=== PATIENT | female | born 1985 | race Caucasian/White ===

== ENCOUNTER 2020-07-12 10:03 | Emergency (ER) | payer MEDICAID, OTHER ==
[~2020-07-12] VITALS: Ht 175.3 cm; Wt 97.3 kg
[2020-07-12 10:17] VITALS: BP 121/66
[2020-07-12] MEDS ORDERED: CEPHALEXIN MONOHYDRATE 500 MG CAPSULE PO ONE (10:30)
== END 2020-07-12 12:03 | disposition home or self-care (01) ==
LOC: EMS 10:24
DX: N39.0 Urinary tract infection, site not specified (principal); F31.9 Bipolar disorder, unspecified; F41.9 Anxiety disorder, unspecified; Z91.010 Allergy to peanuts; Z88.8 Allergy status to other drugs, medicaments and biological substances
CPT/HCPCS: 99283

== ENCOUNTER 2020-07-23 11:35 | Emergency (ER) | payer OTHER | END 2020-07-23 13:26 | disposition home or self-care (01) | LOC: EMS 11:37 | DX: R45.851 Suicidal ideations (principal); Z53.21 Procedure and treatment not carried out due to patient leaving prior to being seen by health care provider ==

== ENCOUNTER 2020-08-18 03:51 | Emergency (ER) | payer OTHER ==
[~2020-08-18] VITALS: Ht 175.3 cm; Wt 92.7 kg
[2020-08-18] MEDS ORDERED: FLUO40CA PO (04:19)
[2020-08-18] MEDS ORDERED: PRAZ2 PO (04:19)
[2020-08-18] MEDS ORDERED: CHOL200074 PO (04:19)
[2020-08-18] MEDS ORDERED: METO25 PO (04:19)
[2020-08-18] MEDS ORDERED: BUSP10TA23 PO (04:19)
[2020-08-18] MEDS ORDERED: TOPI50TA24 PO (04:19)
[2020-08-18] MEDS ORDERED: DIPH-1080 PO (04:19)
[2020-08-18] MEDS ORDERED: VALB40CA2 PO (04:19)
[2020-08-18] MEDS ORDERED: LORazepam 2 MG/ML VIAL IM ONE (04:30)
[2020-08-18] MEDS ORDERED: HALOPERIDOL LACTATE 5 MG/ML VIAL IM ONE (04:30)
[2020-08-18 04:44] LABS: BASOPHILS % (AUTO) 0.7 % (0.0-2.0); EOSINOPHILS % (AUTO) 0.3 % (1.0-6.0); HEMATOCRIT 37.9 % (36-46); HEMOGLOBIN 12.4 g/dL (12.0-16.0); LYMPHOCYTES # (AUTO) 2.3 K/uL (1.0-4.8); LYMPHOCYTES % (AUTO) 16.1 % (22.0-44.0); MEAN CORPUSCULAR HEMOGLOBIN 30.2 pg (26.0-34.0); MEAN CORPUSCULAR HGB CONC 32.8 G/dL (31.0-37.0); MEAN CORPUSCULAR VOLUME 92 fL (80-100); MONOCYTES # (AUTO) 1.2 K/uL (0.1-1.0); MONOCYTES % (AUTO) 8.7 % (2.0-9.0); NEUTROPHILS # (AUTO) 10.4 K/uL (1.8-7.7); NEUTROPHILS % (AUTO) 74.2 % (40.0-70.0); PLATELET COUNT (AUTO) 359 K/uL (150-450); RED BLOOD CELL COUNT(AUTO) 4.12 MIL/uL (4.00-5.20); RED CELL DISTRIBUTION WIDTH 13.1 % (11.5-14.5)
[2020-08-18] MEDS ORDERED: ONDANSETRON HCL 4 MG/2 ML VIAL IM ONE (04:45)
[2020-08-18] MEDS ORDERED: LORazepam 2 MG TABLET PO PRN (05:00)
[2020-08-18] MEDS ORDERED: OLANZapine 5 MG TABLET PO PRN (05:00)
[2020-08-18] MEDS ORDERED: ZOLPIDEM TARTRATE 10 MG TABLET PO PRN (05:00)
[2020-08-18 05:08] LABS: CALCIUM, TOTAL 9.1 mg/dL (8.8-10.5); CARBON DIOXIDE 24 mmol/L (22-29); CHLORIDE 101 mmol/L (98-107); CREATININE 0.81 mg/dL (0.60-1.30); GLOMERULAR FILTR. RATE CALC > 60 mL/min (>60); GLUCOSE,RANDOM 101 mg/dL (70-110); UREA NITROGEN, BLOOD 21 mg/dL (7-18)
[2020-08-18 05:33] LABS: ALANINE AMINOTRANSFERASE 37 U/L (12-78); ALBUMIN 3.9 g/dL (3.4-5.0); ALKALINE PHOSPHATASE 92 U/L (46-116); ANION GAP 13 mmol/L (8-16); ASPARTATE AMINOTRANSFERASE 30 U/L (15-37); BILIRUBIN,TOTAL 0.5 mg/dL (0.1-1.0); CREATINE KINASE, TOTAL ONLY 233 U/L (26-192); HCG,QUANTITATIVE < 1 mIU/mL (0-6); LIPASE 41 U/L (73-393); POTASSIUM 3.4 mmol/L (3.5-5.1); SODIUM SERUM 138 mmol/L (136-145); TOTAL PROTEIN, SERUM 8.3 g/dL (6.4-8.2)
[2020-08-18 06:06] LABS: COVID AG,FIA SOURCE NASOPHARYNGEAL
[2020-08-18 07:14] VITALS: BP 124/73
[2020-08-18 07:32] LABS: APPEARANCE,URINE CLOUDY (CLEAR); BILIRUBIN,URINE NEGATIVE (NEGATIVE); GLUCOSE, URINE (UA) NEGATIVE (NEGATIVE); KETONES,URINE >=80 mg/dL (NEGATIVE); LEUKOCYTE ESTERASE ,URINE SMALL (NEGATIVE); NITRATE,URINE NEGATIVE (NEGATIVE); OCCULT BLOOD,URINE NEGATIVE (NEGATIVE); PROTEIN,URINE TRACE (NEGATIVE); UROBILINOGEN,URINE 0.2 mg/dL (<=1.0)
[2020-08-18 07:35] LABS: AMPHET/METH SCREEN,URINE POSITIVE (NEGATIVE); BARBITURATE SCREEN, URINE NEGATIVE (NEGATIVE); BENZODIAZEPINES SCREEN,URINE NEGATIVE (NEGATIVE); CANNABINOID SCREEN,URINE POSITIVE (NEGATIVE); COCAINE SCREEN,URINE NEGATIVE (NEGATIVE); METHADONE SCREEN, URINE NEGATIVE (NEGATIVE); OPIATE SCREEN,URINE NEGATIVE (NEGATIVE)
[2020-08-18 07:40] LABS: BACTERIA,URINE Moderate /HPF (None Seen); RBC,URINE 0-2 /HPF (0-2); SQUAMOUS EPITHELIAL CELL,UR Many /LPF (None Seen)
[2020-08-18 07:43] LABS: PHENCYCLIDINE SCREEN,URINE NEGATIVE (NEGATIVE)
== END 2020-08-18 13:48 | disposition admitted as inpatient to this hospital (09) ==
LOC: EMS 03:51 → UNDOADMIN 12:55 → 6N 12:55 → EMS 13:48
DX: F25.9 Schizoaffective disorder, unspecified (principal); F15.10 Other stimulant abuse, uncomplicated; Z20.822 Contact with and (suspected) exposure to COVID-19
CPT/HCPCS: 36415; 80053; 80307; 81001; 82550; 83690; 84702; 85025; 87086; 87426; 96372; 99285; G0480; J1630; J2060; J2405

== ENCOUNTER 2020-08-26 08:07 | Emergency (ER) | payer OTHER ==
[~2020-08-26] VITALS: Ht 175.3 cm; Wt 95.5 kg
[~2020-08-26 08:07] MED LIST: BUSP10TA23 PO; CHOL200074 PO; DIPH-1080 PO; FLUO40CA PO; METO25 PO; PRAZ2 PO; TOPI50TA24 PO; VALB40CA2 PO
[2020-08-26 08:20] VITALS: BP 114/62
[2020-08-26] MEDS ORDERED: PERTUSS(ACELL),DIPH,TET VAC/PF 0.5 ML SYRINGE IM. ONE (08:45)
== END 2020-08-26 10:28 | disposition home or self-care (01) ==
LOC: EMS 08:07
DX: S61.451A Open bite of right hand, initial encounter (principal); F19.10 Other psychoactive substance abuse, uncomplicated; F31.9 Bipolar disorder, unspecified; F41.9 Anxiety disorder, unspecified; Z88.8 Allergy status to other drugs, medicaments and biological substances; Z91.012 Allergy to eggs; Z91.010 Allergy to peanuts; Z91.013 Allergy to seafood; W54.0XXA Bitten by dog, initial encounter; Y93.89 Activity, other specified; Y92.89 Other specified places as the place of occurrence of the external cause; Y99.8 Other external cause status
CPT/HCPCS: 90471; 90715; 99283

== ENCOUNTER 2020-08-26 11:26 | Emergency (ER) | payer OTHER ==
[~2020-08-26] VITALS: Ht 176.5 cm; Wt 70.5 kg
[2020-08-26 11:32] VITALS: BP 118/69
== END 2020-08-26 13:12 | disposition left against medical advice (07) ==
LOC: EMS 11:36
DX: M79.671 Pain in right foot (principal); M79.672 Pain in left foot; Z53.21 Procedure and treatment not carried out due to patient leaving prior to being seen by health care provider

== ENCOUNTER 2020-08-26 14:01 | Emergency (ER) | payer OTHER ==
[~2020-08-26] VITALS: Ht 172.7 cm; Wt 70.5 kg
[2020-08-26 14:14] VITALS: BP 122/70
[2020-08-26] MEDS ORDERED: ACETAMINOPHEN 500 MG TABLET PO ONE (14:30)
[2020-08-26] MEDS ORDERED: KETOROLAC TROMETHAMINE 30 MG/ML VIAL IM ONE (14:30)
== END 2020-08-26 15:22 | disposition home or self-care (01) ==
LOC: EMS 14:01
DX: S91.351A Open bite, right foot, initial encounter (principal); S91.352A Open bite, left foot, initial encounter; S61.451A Open bite of right hand, initial encounter; F19.10 Other psychoactive substance abuse, uncomplicated; F31.9 Bipolar disorder, unspecified; F41.9 Anxiety disorder, unspecified; Z59.0 Homelessness; Z88.8 Allergy status to other drugs, medicaments and biological substances; Z91.012 Allergy to eggs; Z91.018 Allergy to other foods; Z91.010 Allergy to peanuts; Z91.013 Allergy to seafood; W54.0XXA Bitten by dog, initial encounter; Y93.89 Activity, other specified; Y92.89 Other specified places as the place of occurrence of the external cause; Y99.8 Other external cause status
CPT/HCPCS: 96372; 99283; J1885

== ENCOUNTER 2020-08-26 18:25 | Inpatient (IN) | payer MEDICAID, OTHER ==
[~2020-08-26] VITALS: Ht 172.7 cm; Wt 91.8 kg
[2020-08-26 21:33] LABS: BASOPHILS % (AUTO) 0.6 % (0.0-2.0); EOSINOPHILS % (AUTO) 1.8 % (1.0-6.0); HEMATOCRIT 35.2 % (36-46); HEMOGLOBIN 11.5 g/dL (12.0-16.0); LYMPHOCYTES # (AUTO) 1.8 K/uL (1.0-4.8); LYMPHOCYTES % (AUTO) 24.7 % (22.0-44.0); MEAN CORPUSCULAR HEMOGLOBIN 30.7 pg (26.0-34.0); MEAN CORPUSCULAR HGB CONC 32.6 G/dL (31.0-37.0); MEAN CORPUSCULAR VOLUME 94 fL (80-100); MONOCYTES # (AUTO) 0.8 K/uL (0.1-1.0); MONOCYTES % (AUTO) 11.2 % (2.0-9.0); NEUTROPHILS # (AUTO) 4.5 K/uL (1.8-7.7); NEUTROPHILS % (AUTO) 61.7 % (40.0-70.0); PLATELET COUNT (AUTO) 341 K/uL (150-450); RED BLOOD CELL COUNT(AUTO) 3.73 MIL/uL (4.00-5.20); RED CELL DISTRIBUTION WIDTH 13.8 % (11.5-14.5)
[2020-08-26 21:44] LABS: ANION GAP 5 mmol/L (8-16); CALCIUM, TOTAL 8.7 mg/dL (8.8-10.5); CARBON DIOXIDE 27 mmol/L (22-29); CHLORIDE 108 mmol/L (98-107); CREATININE 0.79 mg/dL (0.60-1.30); GLOMERULAR FILTR. RATE CALC > 60 mL/min (>60); GLUCOSE,RANDOM 97 mg/dL (70-110); POTASSIUM 3.3 mmol/L (3.5-5.1); SODIUM SERUM 140 mmol/L (136-145); UREA NITROGEN, BLOOD 14 mg/dL (7-18)
[2020-08-26 21:48] LABS: SALICYLATE 2.8 mg/dL (2.8-20.0)
[2020-08-26 21:49] LABS: ALANINE AMINOTRANSFERASE 31 U/L (12-78); ALBUMIN 3.3 g/dL (3.4-5.0); ALKALINE PHOSPHATASE 80 U/L (46-116); ASPARTATE AMINOTRANSFERASE 31 U/L (15-37); BILIRUBIN,TOTAL 0.2 mg/dL (0.1-1.0); TOTAL PROTEIN, SERUM 7.1 g/dL (6.4-8.2)
[2020-08-26 21:52] LABS: ACETAMINOPHEN < 2 mcg/mL (10-30)
[2020-08-26] MEDS ORDERED: LORazepam 2 MG/ML VIAL IM ONE (22:00)
[2020-08-26] MEDS ORDERED: HALOPERIDOL LACTATE 5 MG/ML VIAL IM ONE (22:00)
[2020-08-26] MEDS ORDERED: DiphenhydrAMINE HCL 50 MG/ML VIAL IM ONE (22:00)
[2020-08-26 22:37] LABS: COVID AG,FIA SOURCE NASOPHARYNGEAL
[2020-08-27 03:57] VITALS: BP 114/70
[2020-08-27] MEDS ORDERED: POTASSIUM CHLORIDE 20 MEQ ER TABLET PO ONE (06:45)
[2020-08-27] MEDS ORDERED: GuaiFENesin/D-METHORPHAN [SUGAR-FREE] 200-20MG/10 ML SYRUP UDCUP PO PRN (08:15)
[2020-08-27] MEDS ORDERED: MAGNESIUM HYDROXIDE SUSPENSION 30 ML UDCUP PO PRN (08:15)
[2020-08-27] MEDS ORDERED: ONDANSETRON HCL 4 MG TABLET PO PRN (08:15)
[2020-08-27] MEDS ORDERED: PETROLATUM,WHITE 28 GM JELLY TP PRN (08:15)
[2020-08-27] MEDS ORDERED: ACETAMINOPHEN 325 MG TABLET PO PRN (08:15)
[2020-08-27] MEDS ORDERED: MAG HYDROX/AL HYDROX/SIMETH ES 30 ML SUSPENSION UDCUP PO PRN (08:15)
[2020-08-27] MEDS ORDERED: CloNIDine HCL 0.1 MG TABLET PO PRN (08:15)
[2020-08-27] MEDS ORDERED: LOPERAMIDE HCL 2 MG CAPSULE PO PRN (08:15)
[2020-08-27] MEDS ORDERED: ALBUTEROL SULFATE HFA 90 MCG/PUFF 8 GM INHALER IH PRN (08:15)
[2020-08-27] MEDS ORDERED: DOCUSATE SODIUM 100 MG CAPSULE PO PRN (08:15)
[2020-08-27] MEDS: CHOLECALCIFEROL (VIT D3) 1,000 UNITS [25 MCG] TABLET PO SCH (08:31)
[2020-08-27] MEDS: METOPROLOL TARTRATE 25 MG TABLET PO SCH (08:31)
[2020-08-27] MEDS: LORazepam 2 MG TABLET PO PRN (09:24)
[2020-08-27 10:51] VITALS: BP 115/63
[2020-08-27 12:45] LABS: AMPHET/METH SCREEN,URINE POSITIVE (NEGATIVE); BARBITURATE SCREEN, URINE NEGATIVE (NEGATIVE); BENZODIAZEPINES SCREEN,URINE NEGATIVE (NEGATIVE); CANNABINOID SCREEN,URINE POSITIVE (NEGATIVE); COCAINE SCREEN,URINE NEGATIVE (NEGATIVE); METHADONE SCREEN, URINE NEGATIVE (NEGATIVE); OPIATE SCREEN,URINE NEGATIVE (NEGATIVE)
[2020-08-27 12:46] LABS: APPEARANCE,URINE SL CLOUDY (CLEAR); BILIRUBIN,URINE NEGATIVE (NEGATIVE); GLUCOSE, URINE (UA) NEGATIVE (NEGATIVE); KETONES,URINE TRACE mg/dL (NEGATIVE); LEUKOCYTE ESTERASE ,URINE SMALL (NEGATIVE); NITRATE,URINE NEGATIVE (NEGATIVE); OCCULT BLOOD,URINE NEGATIVE (NEGATIVE); PH,URINE 6.5 (5.0-8.0); PROTEIN,URINE NEGATIVE (NEGATIVE); UROBILINOGEN,URINE 0.2 mg/dL (<=1.0)
[2020-08-27 12:47] LABS: PHENCYCLIDINE SCREEN,URINE NEGATIVE (NEGATIVE)
[2020-08-27 13:00] LABS: BACTERIA,URINE Moderate /HPF (None Seen); RBC,URINE 0-2 /HPF (0-2)
[2020-08-27 13:01] LABS: SQUAMOUS EPITHELIAL CELL,UR Moderate /LPF (None Seen)
[2020-08-27 16:15] VITALS: BP 115/59
[2020-08-27] MEDS: RisperiDONE 1 MG TABLET PO SCH (17:14)
[2020-08-27] MEDS: IBUPROFEN 600 MG TABLET PO PRN (18:12)
[2020-08-27] MEDS ORDERED: HALOPERIDOL LACTATE 5 MG/ML VIAL ONE (18:24)
[2020-08-27] MEDS ORDERED: LORazepam 2 MG/ML VIAL ONE (18:24)
[2020-08-27] MEDS ORDERED: DiphenhydrAMINE HCL 50 MG/ML VIAL ONE (18:24)
[2020-08-27] MEDS ORDERED: HALOPERIDOL LACTATE 5 MG/ML VIAL IM ONE (18:30)
[2020-08-27] MEDS ORDERED: DiphenhydrAMINE HCL 50 MG/ML VIAL IM ONE (18:30)
[2020-08-27] MEDS ORDERED: LORazepam 2 MG/ML VIAL IM ONE (18:30)
[2020-08-27] MEDS: CEPHALEXIN MONOHYDRATE 500 MG CAPSULE PO SCH (19:00)
[2020-08-28] MEDS: IBUPROFEN 600 MG TABLET PO PRN (05:20)
[2020-08-28] MEDS: CHOLECALCIFEROL (VIT D3) 1,000 UNITS [25 MCG] TABLET PO SCH (08:07)
[2020-08-28] MEDS: RisperiDONE 1 MG TABLET PO SCH ×2 (08:07→16:28)
[2020-08-28] MEDS: CEPHALEXIN MONOHYDRATE 500 MG CAPSULE PO SCH ×3 (08:08→16:28)
[2020-08-28] MEDS: HALOPERIDOL 5 MG TABLET PO PRN ×2 (08:08→16:29)
[2020-08-28] MEDS: METOPROLOL TARTRATE 25 MG TABLET PO SCH (08:08)
[2020-08-28] MEDS: LORazepam 2 MG TABLET PO PRN ×2 (08:08→20:39)
[2020-08-28 08:21] VITALS: BP 119/85
[2020-08-28 10:17] LABS: ALANINE AMINOTRANSFERASE 35 U/L (12-78); ALBUMIN 2.6 g/dL (3.4-5.0); ALKALINE PHOSPHATASE 70 U/L (46-116); ANION GAP 6 mmol/L (8-16); ASPARTATE AMINOTRANSFERASE 27 U/L (15-37); BILIRUBIN,TOTAL 0.1 mg/dL (0.1-1.0); CALCIUM, TOTAL 8.7 mg/dL (8.8-10.5); CARBON DIOXIDE 27 mmol/L (22-29); CHLORIDE 107 mmol/L (98-107); CREATININE 0.82 mg/dL (0.60-1.30); GLOMERULAR FILTR. RATE CALC > 60 mL/min (>60); GLUCOSE,RANDOM 87 mg/dL (70-110); POTASSIUM 4.2 mmol/L (3.5-5.1); SODIUM SERUM 140 mmol/L (136-145); TOTAL PROTEIN, SERUM 5.9 g/dL (6.4-8.2); UREA NITROGEN, BLOOD 19 mg/dL (7-18)
[2020-08-28 16:00] VITALS: BP 114/63
[2020-08-29] MEDS: IBUPROFEN 600 MG TABLET PO PRN (01:42)
[2020-08-29 01:48] VITALS: BP 99/60
[2020-08-29 09:00] VITALS: BP 135/68
[2020-08-29] MEDS: CEPHALEXIN MONOHYDRATE 500 MG CAPSULE PO SCH ×3 (09:04→16:32)
[2020-08-29] MEDS: HALOPERIDOL 5 MG TABLET PO PRN ×2 (09:04→16:32)
[2020-08-29] MEDS: CHOLECALCIFEROL (VIT D3) 1,000 UNITS [25 MCG] TABLET PO SCH (09:04)
[2020-08-29] MEDS: MULTIVITAMINS WITH MINERALS, THERAPEUTIC TABLET PO SCH (09:04)
[2020-08-29] MEDS: RisperiDONE 1 MG TABLET PO SCH ×2 (09:04→16:32)
[2020-08-29] MEDS: LORazepam 2 MG TABLET PO PRN ×2 (09:04→23:02)
[2020-08-29] MEDS: METOPROLOL TARTRATE 25 MG TABLET PO SCH (09:05)
[2020-08-29 16:00] VITALS: BP 130/71
[2020-08-30 08:15] VITALS: BP 112/72
[2020-08-30] MEDS: MULTIVITAMINS WITH MINERALS, THERAPEUTIC TABLET PO SCH (09:00)
[2020-08-30] MEDS: CEPHALEXIN MONOHYDRATE 500 MG CAPSULE PO SCH ×3 (09:00→15:50)
[2020-08-30] MEDS: RisperiDONE 1 MG TABLET PO SCH ×2 (09:01→15:50)
[2020-08-30] MEDS: METOPROLOL TARTRATE 25 MG TABLET PO SCH (09:01)
[2020-08-30] MEDS: CHOLECALCIFEROL (VIT D3) 1,000 UNITS [25 MCG] TABLET PO SCH (09:01)
[2020-08-30] MEDS: LORazepam 2 MG TABLET PO PRN ×2 (15:51→20:39)
[2020-08-30 17:03] VITALS: BP 104/74
[2020-08-31 08:11] VITALS: BP 108/62
[2020-08-31] MEDS: RisperiDONE 1 MG TABLET PO SCH ×2 (08:23→15:53)
[2020-08-31] MEDS: ASCORBIC ACID 500 MG TABLET PO SCH (08:23)
[2020-08-31] MEDS: CEPHALEXIN MONOHYDRATE 500 MG CAPSULE PO SCH ×3 (08:23→15:53)
[2020-08-31] MEDS: METOPROLOL TARTRATE 25 MG TABLET PO SCH (08:23)
[2020-08-31] MEDS: MULTIVITAMINS WITH MINERALS, THERAPEUTIC TABLET PO SCH (08:23)
[2020-08-31] MEDS: CHOLECALCIFEROL (VIT D3) 1,000 UNITS [25 MCG] TABLET PO SCH (08:24)
[2020-08-31] MEDS: HALOPERIDOL 5 MG TABLET PO PRN (15:31)
[2020-08-31] MEDS: LORazepam 2 MG TABLET PO PRN (15:31)
[2020-08-31] MEDS: IBUPROFEN 600 MG TABLET PO PRN (15:53)
[2020-08-31 17:19] VITALS: BP 103/68
[2020-09-01] MEDS: CHOLECALCIFEROL (VIT D3) 1,000 UNITS [25 MCG] TABLET PO SCH (07:41)
[2020-09-01] MEDS: RisperiDONE 1 MG TABLET PO SCH ×2 (07:41→16:12)
[2020-09-01] MEDS: CEPHALEXIN MONOHYDRATE 500 MG CAPSULE PO SCH ×3 (07:41→16:12)
[2020-09-01] MEDS: MULTIVITAMINS WITH MINERALS, THERAPEUTIC TABLET PO SCH (07:41)
[2020-09-01] MEDS: ASCORBIC ACID 500 MG TABLET PO SCH (07:41)
[2020-09-01] MEDS: METOPROLOL TARTRATE 25 MG TABLET PO SCH (07:41)
[2020-09-01] MEDS: IBUPROFEN 600 MG TABLET PO PRN (07:43)
[2020-09-01] MEDS: HALOPERIDOL 5 MG TABLET PO PRN (07:45)
[2020-09-01] MEDS: LORazepam 2 MG TABLET PO PRN (07:45)
[2020-09-01 08:12] VITALS: BP 107/71
[2020-09-01 16:00] VITALS: BP 114/65
[2020-09-01] MEDS: DiphenhydrAMINE HCL 25 MG CAPSULE PO PRN (16:27)
[2020-09-01] MEDS: ZOLPIDEM TARTRATE 10 MG TABLET PO PRN (20:13)
[2020-09-02] MEDS: DiphenhydrAMINE HCL 25 MG CAPSULE PO PRN (06:21)
[2020-09-02] MEDS: IBUPROFEN 600 MG TABLET PO PRN ×2 (06:22→16:20)
[2020-09-02 08:00] VITALS: BP 122/73
[2020-09-02] MEDS: METOPROLOL TARTRATE 25 MG TABLET PO SCH (08:03)
[2020-09-02] MEDS: MULTIVITAMINS WITH MINERALS, THERAPEUTIC TABLET PO SCH (08:04)
[2020-09-02] MEDS: CHOLECALCIFEROL (VIT D3) 1,000 UNITS [25 MCG] TABLET PO SCH (08:04)
[2020-09-02] MEDS: RisperiDONE 1 MG TABLET PO SCH ×2 (08:04→15:58)
[2020-09-02] MEDS: ASCORBIC ACID 500 MG TABLET PO SCH (08:04)
[2020-09-02] MEDS: LORazepam 2 MG TABLET PO PRN ×2 (10:31→15:58)
[2020-09-02] MEDS: HALOPERIDOL 5 MG TABLET PO PRN (15:58)
[2020-09-02 16:44] VITALS: BP 108/72
[2020-09-03] MEDS: ASCORBIC ACID 500 MG TABLET PO SCH (08:09)
[2020-09-03] MEDS: MULTIVITAMINS WITH MINERALS, THERAPEUTIC TABLET PO SCH (08:09)
[2020-09-03] MEDS: RisperiDONE 1 MG TABLET PO SCH ×2 (08:09→16:05)
[2020-09-03] MEDS: METOPROLOL TARTRATE 25 MG TABLET PO SCH (08:09)
[2020-09-03] MEDS: CHOLECALCIFEROL (VIT D3) 1,000 UNITS [25 MCG] TABLET PO SCH (08:09)
[2020-09-03 08:33] VITALS: BP 102/63
[2020-09-03] MEDS: DiphenhydrAMINE HCL 25 MG CAPSULE PO PRN (14:53)
[2020-09-03 16:33] LABS: COVID AG,FIA SOURCE NASOPHARYNGEAL
[2020-09-03 16:44] VITALS: BP 100/63
[2020-09-03 18:00] VITALS: BP 121/71
[2020-09-03] MEDS: LORazepam 2 MG TABLET PO PRN (18:03)
[2020-09-03] MEDS: ZOLPIDEM TARTRATE 10 MG TABLET PO PRN (20:09)
[2020-09-04 08:06] VITALS: BP 127/87
[2020-09-04] MEDS: ASCORBIC ACID 500 MG TABLET PO SCH (08:11)
[2020-09-04] MEDS: METOPROLOL TARTRATE 25 MG TABLET PO SCH (08:11)
[2020-09-04] MEDS: MULTIVITAMINS WITH MINERALS, THERAPEUTIC TABLET PO SCH (08:11)
[2020-09-04] MEDS: CHOLECALCIFEROL (VIT D3) 1,000 UNITS [25 MCG] TABLET PO SCH (08:11)
[2020-09-04] MEDS: RisperiDONE 1 MG TABLET PO SCH ×2 (08:12→16:34)
[2020-09-04] MEDS: DiphenhydrAMINE HCL 25 MG CAPSULE PO PRN (08:38)
[2020-09-04] MEDS: LORazepam 2 MG TABLET PO PRN ×2 (13:39→20:49)
[2020-09-04] MEDS: HALOPERIDOL 5 MG TABLET PO PRN (14:09)
[2020-09-04 16:02] VITALS: BP 103/62
[2020-09-04] MEDS: ZOLPIDEM TARTRATE 10 MG TABLET PO PRN (20:49)
[2020-09-05] MEDS: DiphenhydrAMINE HCL 25 MG CAPSULE PO PRN ×2 (00:27→08:36)
[2020-09-05 05:40] VITALS: BP 113/68
[2020-09-05] MEDS: IBUPROFEN 600 MG TABLET PO PRN (05:45)
[2020-09-05 08:23] VITALS: BP 104/59
[2020-09-05] MEDS: METOPROLOL TARTRATE 25 MG TABLET PO SCH (08:33)
[2020-09-05] MEDS: MULTIVITAMINS WITH MINERALS, THERAPEUTIC TABLET PO SCH (08:35)
[2020-09-05] MEDS: RisperiDONE 1 MG TABLET PO SCH ×2 (08:36→16:28)
[2020-09-05] MEDS: ASCORBIC ACID 500 MG TABLET PO SCH (08:36)
[2020-09-05] MEDS: CHOLECALCIFEROL (VIT D3) 1,000 UNITS [25 MCG] TABLET PO SCH (08:36)
[2020-09-05] MEDS: HALOPERIDOL 5 MG TABLET PO PRN (09:01)
[2020-09-05] MEDS: LORazepam 2 MG TABLET PO PRN ×2 (09:01→20:53)
[2020-09-05] MEDS ORDERED: LITHIUM CARBONATE 300 MG CAPSULE PO SCH (18:00)
[2020-09-05] MEDS: ZOLPIDEM TARTRATE 10 MG TABLET PO PRN (20:53)
[2020-09-06] MEDS: DiphenhydrAMINE HCL 25 MG CAPSULE PO PRN (01:43)
[2020-09-06] MEDS: LORazepam 2 MG TABLET PO PRN ×3 (01:43→20:50)
[2020-09-06 08:16] VITALS: BP 107/67
[2020-09-06] MEDS: MULTIVITAMINS WITH MINERALS, THERAPEUTIC TABLET PO SCH (08:32)
[2020-09-06] MEDS: ASCORBIC ACID 500 MG TABLET PO SCH (08:32)
[2020-09-06] MEDS: DIVALPROEX SODIUM 500 MG DR TABLET PO SCH ×2 (08:32→16:29)
[2020-09-06] MEDS: CHOLECALCIFEROL (VIT D3) 1,000 UNITS [25 MCG] TABLET PO SCH (08:33)
[2020-09-06] MEDS: RisperiDONE 2 MG TABLET PO SCH ×2 (08:33→16:29)
[2020-09-06] MEDS: METOPROLOL TARTRATE 25 MG TABLET PO SCH (08:33)
[2020-09-06 16:00] VITALS: BP 110/60
[2020-09-06 20:00] VITALS: BP 111/64
[2020-09-06] MEDS: ZOLPIDEM TARTRATE 10 MG TABLET PO PRN (20:50)
[2020-09-07 09:00] VITALS: BP 108/58
[2020-09-07] MEDS: MULTIVITAMINS WITH MINERALS, THERAPEUTIC TABLET PO SCH (09:04)
[2020-09-07] MEDS: CHOLECALCIFEROL (VIT D3) 1,000 UNITS [25 MCG] TABLET PO SCH (09:04)
[2020-09-07] MEDS: RisperiDONE 2 MG TABLET PO SCH ×2 (09:04→16:19)
[2020-09-07] MEDS: ASCORBIC ACID 500 MG TABLET PO SCH (09:04)
[2020-09-07] MEDS: DIVALPROEX SODIUM 500 MG DR TABLET PO SCH ×2 (09:04→16:19)
[2020-09-07] MEDS: METOPROLOL TARTRATE 25 MG TABLET PO SCH (09:05)
[2020-09-07 16:00] VITALS: BP 95/60
[2020-09-07] MEDS: DiphenhydrAMINE HCL 25 MG CAPSULE PO PRN (18:08)
[2020-09-07] MEDS: HALOPERIDOL 5 MG TABLET PO PRN (18:08)
[2020-09-07] MEDS: LORazepam 2 MG TABLET PO PRN (18:08)
[2020-09-07] MEDS: ZOLPIDEM TARTRATE 10 MG TABLET PO PRN (20:45)
[2020-09-08 08:39] VITALS: BP 98/62
[2020-09-08] MEDS: CHOLECALCIFEROL (VIT D3) 1,000 UNITS [25 MCG] TABLET PO SCH (08:59)
[2020-09-08] MEDS: RisperiDONE 2 MG TABLET PO SCH ×2 (08:59→16:17)
[2020-09-08] MEDS: METOPROLOL TARTRATE 25 MG TABLET PO SCH (08:59)
[2020-09-08] MEDS: ASCORBIC ACID 500 MG TABLET PO SCH (08:59)
[2020-09-08] MEDS: DIVALPROEX SODIUM 500 MG DR TABLET PO SCH ×2 (08:59→16:17)
[2020-09-08] MEDS: MULTIVITAMINS WITH MINERALS, THERAPEUTIC TABLET PO SCH (08:59)
[2020-09-08] MEDS: LORazepam 2 MG TABLET PO PRN ×2 (10:29→16:42)
[2020-09-08 16:42] VITALS: BP 115/79
[2020-09-08] MEDS: HALOPERIDOL 5 MG TABLET PO PRN (16:42)
[2020-09-08 17:13] VITALS: BP 109/62
[2020-09-08 17:45] VITALS: BP 109/62
[2020-09-08] MEDS ORDERED: NICOTINE POLACRILEX 2 MG LOZENGE PO PRN (19:00)
[2020-09-08] MEDS: ZOLPIDEM TARTRATE 10 MG TABLET PO PRN (20:09)
[2020-09-09] MEDS: CHOLECALCIFEROL (VIT D3) 1,000 UNITS [25 MCG] TABLET PO SCH (08:19)
[2020-09-09] MEDS: MULTIVITAMINS WITH MINERALS, THERAPEUTIC TABLET PO SCH (08:19)
[2020-09-09] MEDS: ASCORBIC ACID 500 MG TABLET PO SCH (08:19)
[2020-09-09] MEDS: LORazepam 2 MG TABLET PO PRN (08:19)
[2020-09-09] MEDS: DIVALPROEX SODIUM 500 MG DR TABLET PO SCH ×2 (08:19→16:04)
[2020-09-09] MEDS: HALOPERIDOL 5 MG TABLET PO PRN (08:19)
[2020-09-09] MEDS: METOPROLOL TARTRATE 25 MG TABLET PO SCH (08:19)
[2020-09-09] MEDS: DiphenhydrAMINE HCL 25 MG CAPSULE PO PRN (08:19)
[2020-09-09] MEDS: RisperiDONE 2 MG TABLET PO SCH ×2 (08:19→16:04)
[2020-09-09 08:37] VITALS: BP 101/66
[2020-09-09 16:19] VITALS: BP 98/64
[2020-09-09] MEDS ORDERED: RISP2TAB45 PO (16:38)
[2020-09-09] MEDS ORDERED: DIVA-112 PO (16:38)
== END 2020-09-09 17:50 | disposition home or self-care (01) | DRG 753 ==
LOC: EMS 21:08 → 3EI 23:57 → 3EC 08-27 18:24
PROVIDERS: ADMIT Psychiatry & Neurology Psychiatry; ATTEND Psychiatry & Neurology Psychiatry
DX: F31.9 Bipolar disorder, unspecified (principal); F22 Delusional disorders; E87.6 Hypokalemia; F15.10 Other stimulant abuse, uncomplicated; I10 Essential (primary) hypertension; Z20.822 Contact with and (suspected) exposure to COVID-19; Z91.012 Allergy to eggs; Z91.018 Allergy to other foods; Z91.010 Allergy to peanuts; Z91.013 Allergy to seafood; Z88.8 Allergy status to other drugs, medicaments and biological substances; Z91.048 Other nonmedicinal substance allergy status
CPT/HCPCS: 80053; 80061; 80307; 81001; 85025; 87077; 87081; 87086; 87186; 99285; G0480; G0481; J1200; J1630; J2060; J3535; Q0162

== ENCOUNTER 2022-02-27 10:24 | Emergency (ER) | payer MEDICAID, OTHER ==
[~2022-02-27] VITALS: Ht 175.3 cm; Wt 100.0 kg
[~2022-02-27 10:24] MED LIST changes: -BUSP10TA23 PO; -DIPH-1080 PO; +DIVA-112 PO; -FLUO40CA PO; -PRAZ2 PO; +RISP2TAB45 PO; -TOPI50TA24 PO; -VALB40CA2 PO
[2022-02-27 12:20] LABS: BASOPHILS % (AUTO) 0.4 % (0.0-2.0); EOSINOPHILS % (AUTO) 1.8 % (1.0-6.0); HEMATOCRIT 39.7 % (36-46); HEMOGLOBIN 13.6 g/dL (12.0-16.0); LYMPHOCYTES # (AUTO) 2.3 K/uL (1.0-4.8); MEAN CORPUSCULAR HEMOGLOBIN 33.9 pg (26.0-34.0); MEAN CORPUSCULAR HGB CONC 34.3 G/dL (31.0-37.0); MEAN CORPUSCULAR VOLUME 99 fL (80-100); MONOCYTES # (AUTO) 0.7 K/uL (0.1-1.0); MONOCYTES % (AUTO) 9.3 % (2.0-9.0); NEUTROPHILS # (AUTO) 4.2 K/uL (1.8-7.7); NEUTROPHILS % (AUTO) 57.5 % (40.0-70.0); PLATELET COUNT (AUTO) 210 K/uL (150-450); RED BLOOD CELL COUNT(AUTO) 4.01 MIL/uL (4.00-5.20); RED CELL DISTRIBUTION WIDTH 12.6 % (11.5-14.5)
[2022-02-27] MEDS ORDERED: ONDANSETRON HCL 4 MG TABLET PO ONE (12:30)
[2022-02-27] MEDS ORDERED: KETOROLAC TROMETHAMINE 30 MG/ML VIAL IM ONE (12:30)
[2022-02-27 13:42] LABS: APPEARANCE,URINE CLEAR (CLEAR); BILIRUBIN,URINE NEGATIVE (NEGATIVE); GLUCOSE, URINE (UA) NEGATIVE (NEGATIVE); KETONES,URINE 40-60 mg/dL (NEGATIVE); LEUKOCYTE ESTERASE ,URINE NEGATIVE (NEGATIVE); NITRATE,URINE NEGATIVE (NEGATIVE); OCCULT BLOOD,URINE NEGATIVE (NEGATIVE); PH,URINE 5.5 (5.0-8.0); PROTEIN,URINE NEGATIVE (NEGATIVE); SPECIFIC GRAVITIY, URINE 1.024 (1.003-1.030); UROBILINOGEN,URINE <=1.0 mg/dL (<=1.0)
[2022-02-27 16:30] VITALS: BP 126/98
== END 2022-02-27 16:48 | disposition home or self-care (01) ==
LOC: EMS 10:36
DX: R10.2 Pelvic and perineal pain (principal); F41.9 Anxiety disorder, unspecified; F31.9 Bipolar disorder, unspecified; F15.90 Other stimulant use, unspecified, uncomplicated; Z88.5 Allergy status to narcotic agent; Z88.8 Allergy status to other drugs, medicaments and biological substances; Z88.6 Allergy status to analgesic agent; Z91.013 Allergy to seafood; Z91.012 Allergy to eggs; Z91.010 Allergy to peanuts
CPT/HCPCS: 99285; 74176; 81003; 85025; 36415; 96372; J1885; Q0162

== ENCOUNTER 2024-08-23 16:24 | Emergency (ER) | payer MEDICAID, OTHER ==
[~2024-08-23] VITALS: Ht 175.3 cm; Wt 109.1 kg
[2024-08-23 16:43] VITALS: TEMP 98.7
[2024-08-23 16:55] LABS: GLUCOMETER DEV NAME(LOC) ERT.7; GLUCOSE,POINT OF CARE 119 MG/DL (70-110)
[2024-08-23 17:02] LABS: PLATELET COUNT (AUTO) 188 K/uL (150-450); RED BLOOD CELL COUNT(AUTO) 4.45 MIL/uL (4.00-5.20); RED CELL DISTRIBUTION WIDTH 13.6 % (11.5-14.5); WHITE BLOOD COUNT (AUTO) 8.4 K/uL (4.5-11.0)
[2024-08-23 17:11] LABS: CALCIUM, TOTAL 8.8 mg/dL (8.8-10.5); CREATININE 0.95 mg/dL (0.60-1.30); GLOMERULAR FILTR. RATE CALC > 60 mL/min (>60); GLUCOSE,RANDOM 99 mg/dL (70-110); SODIUM SERUM 140 mmol/L (136-145); UREA NITROGEN, BLOOD 15 mg/dL (7-18)
[2024-08-23 18:17] VITALS: BP 118/75; PULSE 83; RESP 16; O2SAT 96
== END 2024-08-23 22:54 | disposition home or self-care (01) ==
LOC: EMS 16:30
DX: F41.9 Anxiety disorder, unspecified (principal); R55 Syncope and collapse; F25.9 Schizoaffective disorder, unspecified; F31.9 Bipolar disorder, unspecified; Z90.710 Acquired absence of both cervix and uterus; Z79.899 Other long term (current) drug therapy; Z91.013 Allergy to seafood; Z91.018 Allergy to other foods; Z91.010 Allergy to peanuts; Z88.6 Allergy status to analgesic agent
CPT/HCPCS: 80048; 82962; 85025; 93005; 99284